=== PATIENT | male | born 1955 | race Hispanic/Latino ===

== ENCOUNTER 2019-09-11 20:12 | Emergency (ER) | payer OTHER ==
[~2019-09-11] VITALS: Ht 172.7 cm; Wt 73.5 kg
--- NOTE | 2019-09-11 21:42 | Diagnostic Imaging Report ---
EXAM: ABDOMEN COMPLETE - [facility], DATE: 09/11/2019 INDICATION: Abdominal pain. COMPARISON: None FINDINGS: ABDOMEN: LINES/TUBES: None BOWEL PATTERN: No evidence for small bowel obstruction. Nonspecific mild gaseous distention of the transverse colon up to 6.5 cm. Normal volume stool. SOFT TISSUES: Phleboliths and vascular calcifications in the pelvis. BONES AND SOFT TISSUES: No acute osseous lesion. Soft tissues are unremarkable. CHEST: LINES/TUBES: None LUNGS: Lungs are well inflated. Mild perihilar, peribronchial thickening and perihilar streaky densities may reflect viral infection versus reactive airway disease. Linear atelectasis versus scarring in the superior right lower lobe. Biapical pleural scarring. There is no evidence of pneumonia or pulmonary edema. PLEURA: No pleural effusion or pneumothorax. Mild blunting of the right lateral concerning sulcus suggestive of trace effusion versus scarring. HEART AND MEDIASTINUM: The cardiomediastinal silhouette is unremarkable. BONES AND SOFT TISSUES: No acute osseous lesion. Soft tissues are unremarkable. IMPRESSION: Nonobstructive bowel gas pattern. Signed by: Dr. Jose Armando Sosa M.D. on 09/11/2019 9:39 PM
--- NOTE | 2019-09-11 22:42 | Diagnostic Imaging Report ---
EXAM: CT Abdomen and Pelvis WITHOUT contrast INDICATION: Bowel obstruction. Pain. COMPARISON: None. TECHNIQUE: Abdomen and pelvis were scanned utilizing a multidetector helical scanner from the lung base to the pubic symphysis without administration of IV contrast. Absence of intravenous contrast decreases sensitivity for detection of focal lesions and vascular pathology. Coronal and sagittal reformations were obtained. Routine protocol was performed. IV CONTRAST: None. ORAL CONTRAST: Water RADIATION DOSE: Total DLP: 617.51 mGy*cm Estimated effective dose: (DLP x 0.015 x size factor) mSv COMPLICATIONS: None FINDINGS: LINES and TUBES: None. LOWER THORAX: Severe Multivessel coronary artery calcifications. Right basilar plate like atelectasis. HEPATOBILIARY: No focal hepatic lesions. No biliary ductal dilation. GALLBLADDER: Single calculus within the gallbladder lumen. No wall thickening. SPLEEN: No splenomegaly. PANCREAS: No focal masses or ductal dilatation. ADRENALS: No adrenal nodules KIDNEYS/URETERS: No hydronephrosis. 2.3 cm cyst in the anterior interpolar region of the right kidney on image 37 series 2. No stones. GI TRACT: No abnormal distention, wall thickening, or evidence of bowel obstruction. Appendix is unremarkable. There is fluid attenuation within the colon. A few scattered descending sigmoid colon diverticula without CT evidence of acute diverticulitis. Hyperdense material within the colon and appendix may be calcification or ingested material. PELVIC ORGANS/BLADDER: Unremarkable. LYMPH NODES: No lymphadenopathy. VESSELS: There is mild atherosclerotic disease in the aorta and major arterial branches. PERITONEUM / RETROPERITONEUM: No free air or fluid. BONES: There are degenerative changes in the lumbar spine. SOFT TISSUES: Unremarkable. IMPRESSION: 1. No evidence of bowel obstruction as per clinical query. No acute abdominal pelvic abnormality. Signed by: Dr. Jose Armando Sosa M.D. on 09/11/2019 10:39 PM
[2019-09-14] MEDS ORDERED: ACYCLOVIR800 MG PO (15:34)
[2019-09-14] MEDS ORDERED: METFORMIN HCL500 MG PO (15:34)
== END 2019-09-11 23:05 | disposition home or self-care (01) ==
LOC: FSED 20:12
DX: R10.9 Unspecified abdominal pain (principal); K59.00 Constipation, unspecified; K92.2 Gastrointestinal hemorrhage, unspecified; D64.9 Anemia, unspecified; E11.9 Type 2 diabetes mellitus without complications
CPT/HCPCS: 74022; 74176; 80048; 80076; 81003; 85025; 99284

== ENCOUNTER → 2019-09-17 | Day surgery (SDC) | payer OTHER ==
[~2019-09-17] MED LIST: ACYCLOVIR800 MG PO; GLUCAGON FOR INJ 1 MG VIAL ONE; HYOSCYAMINE 0.125 MG TAB ONE; METFORMIN HCL500 MG PO; MIDAZOLAM HCL 2 MG/2 ML VIAL ONE; PROPOFOL IV EMULSION 10 MG/ML 50 ML VIAL ONE
--- OUTSIDE RECORDS SUMMARY | 2019-09-17 06:23 | XMS REPORT ---
Author Author [facility] Address Unknown Phone Unavailable Care Team Providers Care Blunger Loader Name Role Phone JAYJAY BEAR Unavailable Unavailable Problems This patient has no known problems. Allergies, Adverse Reactions, Alerts This patient has no known allergies or adverse reactions. Medications This patient has no known medications. Encounters Start Date/Time End Date/Time Encounter Type Admission Type Attending [facility] Care Department Encounter ID 2019-03-25 01:38:00 2019-03-24 22:16:00 Inpatient E [facility] [id number] Results Test Description Test Time Test Comments Text Results Atomic Results Result Comments CT ABD/PEL WO CONTRAST-[facility]D 2019-09-11 22:23:00 [place] [id number] Patient Name: IVONNE CHACON MR #: [id number] : 1955 Age/Sex: 63/M Req #: [id number] Adm Physician: Ordered by: JAYJAY BEAR MD Report #: [id number] Location: [facility] Room/Bed: Procedure: [id number] H[facility]/CT ABD/PEL WO CONTRAST-[facility] Exam Date: 09/11/19 Exam Time: 2205 REPORT STATUS: Signed EXAM: CT Abdomen and Pelvis WITHOUT contrast INDICATION: Bowel obstruction. Pain. COMPARISON: None. TECHNIQUE: Abdomen and pelvis were scanned utilizing a multidetector helical scanner from the lung base to the pubic symphysis without administration of IV contrast. Absence of intravenous contrast decreases sensitivity for detection of focal lesions and vascular pathology. Coronal and sagittal reformations were obtained. Routine protocol was performed. IV CONTRAST: None. ORAL CONTRAST: Water RADIATION DOSE: Total DLP: 617.51 mGy*cm Estimated effective dose: (DLP x 0.015 x size factor) mSv COMPLICATIONS: None FINDINGS: LINES and TUBES: None. LOWER THORAX: Severe Multivessel coronary artery calcifications. Right basilar plate like atelectasis. HEPATOBILIARY: No focal hepatic lesions. No biliary ductal dilation. GALLBLADDER: Single calculus within the gallbladder lumen. No wall thickening. SPLEEN: No splenomegaly. PANCREAS: No focal masses or ductal dilatation. ADRENALS: No adrenal nodules KIDNEYS/URETERS: No hydronephrosis. 2.3 cm cyst in the anterior interpolar region of the right kidney on image 37 series 2. No stones. GI TRACT: No abnormal distention, wall thickening, or evidence of bowel obstruction. Appendix is unremarkable. There is fluid attenuation within the colon. A few scattered descending sigmoid colon diverticula without CT evidence of acute diverticulitis. Hyperdense material within the colon and appendix may be calcification or ingested material. PELVIC ORGANS/BLADDER: Unremarkable. LYMPH NODES: No lymphadenopathy. VESSELS: There is mild atherosclerotic disease in the aorta and major arterial branches. PERITONEUM / RETROPERITONEUM: No free air or fluid. BONES: There are degenerative changes in the lumbar spine. SOFT TISSUES: Unremarkable. IMPRESSION: 1. No evidence of bowel obstruction as per clinical query. No acute abdominal pelvic abnormality. Signed by: Dr. Jose Armando Sosa M.D. on 09/11/2019 10:39 PM Dictated By: BRANDO SOSA MD, MD 38 Transcribed By: GABRIEL on 09/11/192238 COPY TO: JAYJAY BEAR MD ABDOMEN COMPLETE - [facility]D 2019-09-11 21:36:00 [place] [id number] Patient Name: IVONNE CHACON MR #: [id number] : 1955 Age/Sex: 63/M Req #: [id number] Adm Physician: Ordered by: JAYJAY BEAR MD Report #: [id number] Location: [facility] Room/Bed: Procedure: [id number] HOPD/ABDOMEN COMPLETE - [facility] Exam Date: 09/11/19 Exam Time: 2124 REPORT STATUS: Signed EXAM: ABDOMEN COMPLETE - [facility], DATE: 09/11/2019 INDICATION: Abdominal pain. COMPARISON: None FINDINGS: ABDOMEN: LINES/TUBES: None BOWEL PATTERN: No evidence for small bowel obstruction. Nonspecific mild gaseous distention of the transverse colon up to 6.5 cm. Normal volume stool. SOFT TISSUES: Phleboliths and vascular calcifications in the pelvis. BONES AND SOFT TISSUES: No acute osseous les ion. Soft tissues are unremarkable. CHEST: LINES/TUBES: None LUNGS: Lungs are well inflated. Mild perihilar, peribronchial thickening and perihilar streaky densities may reflect viral infection versus reactive airway disease. Linear atelectasis versus scarring in the superior right lower lobe. Biapical pleural scarring. There is no evidence of pneumonia or pulmonary ed feliz. PLEURA: No pleural effusion or pneumothorax. Mild blunting of the right lateral concerning sulcus suggestive of trace effusion versus scarring. HEART AND MEDIASTINUM: The cardiomediastinal silhouette is unremarkable. BONES AND SOFT TISSUES: No acute osseous lesion. Soft tissues are unremarkable. IMPRESSION: Nonobstructive bowel gas pattern. Signed by: Dr. Jose Armando Sosa M.D. on 09/11/2019 9:39 PM Dictated By: BRANDO SOSA MD, MD 38 Transcribed By: GABRIEL on 09/11/192138 COPY TO: JAYJAY BEAR MD
[2019-09-17 08:59] VITALS: BP 100/65
[2019-09-17 10:14] LABS: FREE T4 (FREE THYROXINE) 1.36 ng/dL (0.8-1.8); THYROID STIMULATING HORMONE 0.458 uIU/mL (0.350-4.940)
--- NOTE | 2019-09-17 10:43 | Operative Report ---
DATE OF PROCEDURE: 09/17/2019 SURGEON: James Alvarado MD PROCEDURE: Colonoscopy with polypectomy. INDICATION FOR COLONOSCOPY: Blood clots in stool. MEDICATIONS: The patient was done under MAC, please see anesthesiologist's note. PROCEDURE IN DETAIL: With the patient in left lateral decubitus position, a flexible fiberoptic Olympus colonoscope was inserted into the rectum with ease and advanced all the way to the cecum. Prep overall was suboptimal with retained stools in the colon. The scope was then withdrawn slowly and whatever was visualized in the mucosa overlying the cecum appeared to be within normal limits. There was some scattered diverticular disease noted in the colon, but no obvious obstructing or constricting lesions. One approximately 6 mm polyp was noted in the proximal rectum that was removed per snare electrocautery. The scope was then retroflexed into the distal rectum and moderate-sized internal hemorrhoids were noted, none of which was actively bleeding. The scope was then straightened out, it was subsequently withdrawn. The patient tolerated the procedure well. IMPRESSION: 1. Suboptimal prep. 2. Diverticulosis. 3. Rectal polyp, hot snared. 4. Internal hemorrhoids, none actively bleeding. PLAN: Follow up histology. The patient will need a followup colonoscopy later this year after a better prep. Initiate MiraLAX 17 g in a glass of water p.o. b.i.d. Check thyroid profile. James Alvarado MD [facility] [place]/JANNY /[id number] cc: Dr. Mitch Mittal
== END | disposition home or self-care (01) ==
LOC: ENDO 06:20
PROVIDERS: ATTEND Internal Medicine Gastroenterology
DX: K92.1 Melena (principal); K62.1 Rectal polyp; K57.30 Diverticulosis of large intestine without perforation or abscess without bleeding; K64.8 Other hemorrhoids; K59.00 Constipation, unspecified; R56.9 Unspecified convulsions; E11.9 Type 2 diabetes mellitus without complications; Z79.84 Long term (current) use of oral hypoglycemic drugs
CPT/HCPCS: 36415; 45378; 45385; 82948; 84436; 84439; 84443; 93005; J1610; J2250